=== PATIENT | male | born 1965 | race Caucasian/White ===

== ENCOUNTER 2023-05-06 19:27 | Emergency (ER) | payer MEDICAID ==
[~2023-05-06] VITALS: Ht 175.3 cm; Wt 117.9 kg
[2023-05-06 19:50] VITALS: BP_SYST 138; PULSE 65; RESP 0; TEMP 97.9; O2SAT 97
[2023-05-06 21:11] LABS: BASOPHILS # (AUTO) 0.1 K/uL (0.0-0.2); BASOPHILS % (AUTO) 0.5 % (0.0-2.0); EOSINOPHILS # (AUTO) 0.3 K/uL (0.0-0.4); EOSINOPHILS % (AUTO) 3.1 % (0.0-4.0); HEMATOCRIT 41.1 % (36-54); HEMOGLOBIN 14.4 g/dL (14.0-18.0); LYMPHOCYTES # (AUTO) 3.4 K/uL (1.0-5.5); LYMPHOCYTES % (AUTO) 31.5 % (20.5-51.5); MEAN CORPUSCULAR HEMOGLOBIN 30 pg (27-31); MEAN CORPUSCULAR HGB CONC 35 % (32-36); MEAN CORPUSCULAR VOLUME 87 fL (79.0-98.0); MONOCYTES # (AUTO) 0.8 K/uL (0.0-1.0); MONOCYTES % (AUTO) 7.2 % (1.7-9.3); NEUTROPHILS # (AUTO) 6.2 K/uL (1.8-7.7); NEUTROPHILS % (AUTO) 57.7 % (40.0-70.0); PLATELET COUNT (AUTO) 236 K/uL (130-430); RED BLOOD CELL COUNT(AUTO) 4.73 MIL/uL (4.2-6.2); RED CELL DISTRIBUTION WIDTH 13.1 % (9.0-15.0); WHITE BLOOD COUNT (AUTO) 10.8 K/uL (4.8-10.8)
[2023-05-06 21:15] LABS: ANION GAP 5 (5-15); CALCIUM 9.4 mg/dL (8.4-11.0); CARBON DIOXIDE 29 mmol/L (23-29); CHLORIDE 99 mmol/L (98-107); GFR AFRICAN AMERICAN 128 mL/min (>90); GLUCOSE 148 mg/dL (74-106); POTASSIUM 3.8 mmol/L (3.5-5.1); SODIUM SERUM 133 mmol/L (136-145); UREA NITROGEN, BLOOD 16 mg/dL (8-21)
[2023-05-06 21:16] LABS: GFR NON AFRICAN-AMERICAN 106 mL/min (>90)
[2023-05-06 21:23] LABS: CREATINE KINASE, TOTAL 160 U/L (39-308)
[2023-05-06] MEDS ORDERED: IBUPROFEN 800 MG TABLET PO ONE (21:45)
[2023-05-06] MEDS ORDERED: HYDROcodone/ACETAMIN 5-325 MG TAB (NORCO/ VICODIN) PO ONE (21:45)
[2023-05-06 23:58] VITALS: BP_SYST 138; PULSE 65; RESP 0; TEMP 97.9; O2SAT 97
== END 2023-05-06 23:58 | disposition home or self-care (01) ==
LOC: SED 19:27
DX: S20.212A Contusion of left front wall of thorax, initial encounter (principal); Z79.899 Other long term (current) drug therapy; W18.40XA Slipping, tripping and stumbling without falling, unspecified, initial encounter; Y93.89 Activity, other specified; Y92.89 Other specified places as the place of occurrence of the external cause; Y99.8 Other external cause status
CPT/HCPCS: 36415; 71045; 71250-TC; 76376; 80048; 82550; 84484; 85025; 93005; 99285

== ENCOUNTER 2023-06-25 22:48 | Emergency (ER) | payer SELFPAY ==
[~2023-06-25] VITALS: Ht 172.7 cm; Wt 117.9 kg
[2023-06-25 23:05] VITALS: BP_SYST 190; PULSE 79; RESP 20; TEMP 98; O2SAT 98
[2023-06-26] MEDS ORDERED: ONDA-8 TL (00:08)
[2023-06-26 00:17] VITALS: BP_SYST 148; PULSE 80; RESP 18; TEMP 98; O2SAT 97
== END 2023-06-26 00:17 | disposition home or self-care (01) ==
LOC: SED 22:48
DX: F07.81 Postconcussional syndrome (principal); Z79.899 Other long term (current) drug therapy
CPT/HCPCS: 70450-TC; 99284